=== PATIENT | male | born 1950 | race African-American/Black ===

== ENCOUNTER 2016-06-24 14:12 | Emergency (ER) | payer OTHER ==
[~2016-06-24] VITALS: Ht 170.2 cm; Wt 98.0 kg
[2016-06-24 14:17] VITALS: BP 143/84; PULSE 74; RESP 17; TEMP 97.8; O2SAT 99
[2016-06-24] MEDS ORDERED: ACETAMINOPHEN 325 MG TAB PO ONE (14:45)
[2016-06-24] MEDS ORDERED: CYCLOBENZAPRINE HCL 10 MG TAB PO ONE (14:45)
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
[2016-06-24] MEDS ORDERED: TAMS5CAP PO (15:32)
[2016-06-24] MEDS ORDERED: ASPI1TAB69 PO (15:32)
[2016-06-24] MEDS ORDERED: SERT-132 PO (15:32)
[2016-06-24] MEDS ORDERED: ATOR10TA15 PO (15:32)
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
[2016-06-24 16:22] VITALS: BP 122/76; PULSE 67; RESP 17; TEMP 97.8; O2SAT 100
[2016-06-24] MEDS ORDERED: HYDR-3533 PO (16:42)
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
[2016-06-24 16:50] VITALS: BP 122/81; TEMP 97.8
== END 2016-06-24 16:50 | disposition home or self-care (01) ==
LOC: NEPE 14:12
DX: M54.5 Low back pain (principal); M54.2 Cervicalgia; V43.53XA Car driver injured in collision with pick-up truck in traffic accident, initial encounter
CPT/HCPCS: 70450; 71010; 72125; 72131; 72170